=== PATIENT | male | born 1935 | race Asian ===

== ENCOUNTER 2018-04-08 18:25 | Emergency (ER) | payer MEDICARE, BC ==
[2018-04-08 19:22] LABS: ADD MAN DIFF? NO
[2018-04-08 19:27] LABS: ABNORMAL IP MESSAGE 1; BASOPHILS % 0.3 % (0.0-2.0); EOSINOPHILS # 0.1 10^3/ul (0.0-0.5); EOSINOPHILS % 2.2 % (0.0-7.0); HEMATOCRIT 39.2 % (42.0-52.0); HEMOGLOBIN 13.6 g/dl (14.0-18.0); LYMPHOCYTES # 0.5 10^3/ul (0.8-2.9); LYMPHOCYTES % 7.7 % (15.0-51.0); MEAN CORPUSCULAR HEMOGLOBIN 32.5 pg (29.0-33.0); MEAN CORPUSCULAR HGB CONC 34.7 g/dl (32.0-37.0); MEAN CORPUSCULAR VOLUME 93.8 fl (82.0-101.0); MEAN PLATELET VOLUME 8.8 fl (7.4-10.4); MONOCYTE # 0.5 10^3/ul (0.3-0.9); MONOCYTES % 7.2 % (0.0-11.0); NEUTROPHIL # 5.3 10^3/ul (1.6-7.5); PLATELET COUNT 176 10^3/UL (140-415); POSITIVE DIFF @See below; RED BLOOD COUNT 4.18 10^6/ul (4.70-6.10); RED CELL DISTRIBUTION WIDTH 12.5 % (11.5-14.5)
[2018-04-08 19:27] LABS: WHITE BLOOD COUNT 6.5 10^3/ul (4.8-10.8)
[2018-04-08 19:42] LABS: ANION GAP 10 (8-16); BLOOD UREA NITROGEN 16 mg/dl (7-20); CALCIUM 8.7 mg/dl (8.4-10.2); CARBON DIOXIDE 27 mmol/L (21-31); CHLORIDE 95 mmol/L (97-110); CREATININE 0.68 mg/dl (0.61-1.24); GLUCOSE 103 mg/dl (70-220); POTASSIUM 4.3 mmol/L (3.5-5.1); SODIUM 128 mmol/L (135-144)
[2018-04-08] MEDS: SOD CHLORIDE 0.9% 500 ML IV ×2 (19:42→20:26)
[2018-04-08 19:54] LABS: TROPONIN-I < 0.012 ng/ml (0.000-0.120)
== END 2018-04-08 22:42 | disposition home or self-care (01) ==
LOC: E/R 18:25
DX: R42 Dizziness and giddiness (principal); I10 Essential (primary) hypertension; Z79.01 Long term (current) use of anticoagulants; Z95.0 Presence of cardiac pacemaker
CPT/HCPCS: 36415; 70450; 71045; 80048; 84484; 85025; 93005; 96360; 96361; 99285-25

== ENCOUNTER 2018-10-02 12:47 | Inpatient (IN) | payer MEDICARE, BC, OTHER ==
[2018-10-02 13:20] LABS: ADD MAN DIFF? NO
[2018-10-02 13:24] LABS: BASOPHILS % 0.6 % (0.0-2.0); EOSINOPHILS # 0.4 10^3/ul (0.0-0.5); EOSINOPHILS % 5.5 % (0.0-7.0); HEMATOCRIT 39.1 % (42.0-52.0); HEMOGLOBIN 13.3 g/dl (14.0-18.0); LYMPHOCYTES # 1.1 10^3/ul (0.8-2.9); LYMPHOCYTES % 16.6 % (15.0-51.0); MEAN CORPUSCULAR HEMOGLOBIN 31.8 pg (29.0-33.0); MEAN CORPUSCULAR VOLUME 93.5 fl (82.0-101.0); MEAN PLATELET VOLUME 8.9 fl (7.4-10.4); MONOCYTE # 0.8 10^3/ul (0.3-0.9); MONOCYTES % 12.9 % (0.0-11.0); NEUTROPHIL # 4.2 10^3/ul (1.6-7.5); NEUTROPHILS % 64.1 % (39.0-77.0); PLATELET COUNT 189 10^3/UL (140-415); RED BLOOD COUNT 4.18 10^6/ul (4.70-6.10)
[2018-10-02 13:24] LABS: WHITE BLOOD COUNT 6.5 10^3/ul (4.8-10.8)
[2018-10-02 13:44] LABS: ANION GAP 9 (5-13); BLOOD UREA NITROGEN 17 mg/dl (7-20); CALCIUM 9.1 mg/dl (8.4-10.2); CARBON DIOXIDE 25 mmol/L (21-31); CHLORIDE 97 mmol/L (97-110); CREATININE 0.72 mg/dl (0.61-1.24); GLUCOSE 81 mg/dl (70-220); POTASSIUM 4.1 mmol/L (3.5-5.1); SODIUM 131 mmol/L (135-144)
[2018-10-02 13:55] LABS: TROPONIN-I < 0.012 ng/ml (0.000-0.120)
[2018-10-02] MEDS ORDERED: ACETAMINOPHEN 325 MG TAB PO ×2 (15:30→17:30)
[2018-10-02] MEDS ORDERED: ONDANSETRON 4 MG INJ IV (15:30)
[2018-10-02] MEDS: SOD CHLORIDE 0.9% 1,000 ML IV (15:45)
[2018-10-02] MEDS ORDERED: LORAZEPAM 2 MG INJ IV (17:30)
[2018-10-02] MEDS ORDERED: HYDROCODONE/APAP (5/325) TAB PO (17:30)
[2018-10-02] MEDS ORDERED: hydrALAzine 20 MG INJ IV (17:30)
[2018-10-02] MEDS ORDERED: NACL 0.9% 3 ML SYG IV (17:30)
[2018-10-02] MEDS ORDERED: ALBUTEROL/IPRATROPIUM (NEB) 3 ML AMP HHN (17:30)
[2018-10-02] MEDS ORDERED: MAGNESIUM HYDROXIDE 30ML CUP PO (17:30)
[2018-10-02] MEDS ORDERED: NITROGLYCERIN (SL) 0.4 MG TAB SL (17:30)
[2018-10-02] MEDS ORDERED: morphine 2 MG INJ IV (17:30)
[2018-10-02] MEDS ORDERED: DOCUSATE SODIUM 100 MG CAP PO (17:30)
[2018-10-02] MEDS: SOD CHLORIDE 0.45% 1,000 ML IV (18:45)
[2018-10-02 19:16] LABS: INR 0.95; PROTIME 12.8 Sec (11.9-14.9)
[2018-10-02 19:17] LABS: PARTIAL THROMBOPLASTIN TIME 32.6 Sec (23.0-35.0)
[2018-10-02] MEDS: ATORVASTATIN 40 MG TAB PO (20:13)
[2018-10-02] MEDS: TAMSULOSIN (SR) 0.4 MG CAP PO (20:13)
[2018-10-03 06:21] LABS: ADD MAN DIFF? NO
[2018-10-03 06:32] LABS: WHITE BLOOD COUNT 4.4 10^3/ul (4.8-10.8)
[2018-10-03 06:32] LABS: BASOPHILS % 0.7 % (0.0-2.0); EOSINOPHILS # 0.4 10^3/ul (0.0-0.5); EOSINOPHILS % 8.9 % (0.0-7.0); HEMATOCRIT 37.2 % (42.0-52.0); HEMOGLOBIN 12.9 g/dl (14.0-18.0); LYMPHOCYTES # 0.9 10^3/ul (0.8-2.9); LYMPHOCYTES % 20.1 % (15.0-51.0); MEAN CORPUSCULAR HEMOGLOBIN 31.9 pg (29.0-33.0); MEAN CORPUSCULAR HGB CONC 34.7 g/dl (32.0-37.0); MEAN CORPUSCULAR VOLUME 91.9 fl (82.0-101.0); MEAN PLATELET VOLUME 9.2 fl (7.4-10.4); MONOCYTE # 0.7 10^3/ul (0.3-0.9); MONOCYTES % 15.1 % (0.0-11.0); NEUTROPHIL # 2.4 10^3/ul (1.6-7.5); NEUTROPHILS % 54.7 % (39.0-77.0); PLATELET COUNT 190 10^3/UL (140-415); RED BLOOD COUNT 4.05 10^6/ul (4.70-6.10); RED CELL DISTRIBUTION WIDTH 12.7 % (11.5-14.5)
[2018-10-03 07:13] LABS: ANION GAP 7 (5-13); BLOOD UREA NITROGEN 15 mg/dl (7-20); CALCIUM 8.6 mg/dl (8.4-10.2); CARBON DIOXIDE 23 mmol/L (21-31); CHLORIDE 100 mmol/L (97-110); CHOL/HDL RATIO 2.3 RATIO; CHOLESTEROL 103 mg/dl (100-200); CREATININE 0.71 mg/dl (0.61-1.24); GLUCOSE 83 mg/dl (70-220); HDL CHOLESTEROL 44 mg/dl (31-75); LDL CHOLESTEROL,CALCULATED 51 mg/dl; MAGNESIUM 2.2 mg/dl (1.7-2.5); PHOSPHORUS 3.2 mg/dl (2.5-4.9); POTASSIUM 4.3 mmol/L (3.5-5.1); SODIUM 130 mmol/L (135-144); TRIGLYCERIDES 40 mg/dl (0-149)
[2018-10-03] MEDS: SOD CHLORIDE 0.45% 1,000 ML IV (07:30)
[2018-10-03 07:50] LABS: HEMOGLOBIN A1C 5.7 % (0-5.9)
[2018-10-03] MEDS: CLOPIDOGREL 75 MG TAB PO (09:27)
[2018-10-03] MEDS: DUTASTERIDE 0.5 MG CAP PO (09:27)
[2018-10-03] MEDS: AMIODARONE 150MG/D5W BOLUS 100 ML IV (16:33)
[2018-10-03] MEDS: AMIODARONE 900 MG in DEXTROSE 5% 482 ML IV (16:56)
[2018-10-03] MEDS: ATORVASTATIN 40 MG TAB PO (20:08)
[2018-10-03] MEDS: METOPROLOL (XL) 25 MG TAB PO (20:08)
[2018-10-03] MEDS: TAMSULOSIN (SR) 0.4 MG CAP PO (20:08)
[2018-10-04] MEDS: MELATONIN 5 MG TABLET PO (01:59)
[2018-10-04 06:44] LABS: ADD MAN DIFF? NO
[2018-10-04 06:49] LABS: BASOPHILS % 0.6 % (0.0-2.0); EOSINOPHILS # 0.3 10^3/ul (0.0-0.5); EOSINOPHILS % 6.7 % (0.0-7.0); HEMATOCRIT 38.6 % (42.0-52.0); HEMOGLOBIN 13.4 g/dl (14.0-18.0); LYMPHOCYTES # 0.9 10^3/ul (0.8-2.9); LYMPHOCYTES % 19.1 % (15.0-51.0); MEAN CORPUSCULAR HEMOGLOBIN 31.6 pg (29.0-33.0); MEAN CORPUSCULAR HGB CONC 34.7 g/dl (32.0-37.0); MEAN PLATELET VOLUME 9.1 fl (7.4-10.4); MONOCYTE # 0.6 10^3/ul (0.3-0.9); MONOCYTES % 12.5 % (0.0-11.0); NEUTROPHIL # 2.9 10^3/ul (1.6-7.5); NEUTROPHILS % 60.9 % (39.0-77.0); PLATELET COUNT 202 10^3/UL (140-415); RED BLOOD COUNT 4.24 10^6/ul (4.70-6.10); RED CELL DISTRIBUTION WIDTH 12.5 % (11.5-14.5)
[2018-10-04 06:49] LABS: WHITE BLOOD COUNT 4.8 10^3/ul (4.8-10.8)
[2018-10-04 07:10] LABS: ALANINE AMINOTRANSFERASE 19 IU/L (13-69); ALBUMIN 3.4 g/dl (3.3-4.9); ALBUMIN/GLOBULIN RATIO 1.21; ALKALINE PHOSPHATASE 63 IU/L (42-121); ANION GAP 8 (5-13); ASPARTATE AMINO TRANSFERASE 23 IU/L (15-46); BILIRUBIN,INDIRECT 1.5 mg/dl (0-1.1); BILIRUBIN,TOTAL 1.5 mg/dl (0.2-1.3); BLOOD UREA NITROGEN 17 mg/dl (7-20); CALCIUM 8.8 mg/dl (8.4-10.2); CARBON DIOXIDE 25 mmol/L (21-31); CHLORIDE 96 mmol/L (97-110); CREATININE 0.73 mg/dl (0.61-1.24); GLUCOSE 109 mg/dl (70-220); MAGNESIUM 2.1 mg/dl (1.7-2.5); SODIUM 129 mmol/L (135-144); TOTAL PROTEIN 6.2 g/dl (6.1-8.1)
[2018-10-04] MEDS: CLOPIDOGREL 75 MG TAB PO (08:33)
[2018-10-04] MEDS: DUTASTERIDE 0.5 MG CAP PO (08:34)
[2018-10-04] MEDS: METOPROLOL (XL) 25 MG TAB PO ×2 (08:34→20:26)
[2018-10-04] MEDS: ONDANSETRON 4 MG INJ IV (10:54)
[2018-10-04] MEDS: AMIODARONE 900 MG in DEXTROSE 5% 482 ML IV (15:51)
[2018-10-04] MEDS: ATORVASTATIN 40 MG TAB PO (20:25)
[2018-10-04] MEDS: TAMSULOSIN (SR) 0.4 MG CAP PO (20:25)
[2018-10-05 06:52] LABS: ADD MAN DIFF? NO
[2018-10-05 06:57] LABS: BASOPHILS % 0.6 % (0.0-2.0); EOSINOPHILS # 0.3 10^3/ul (0.0-0.5); EOSINOPHILS % 6.8 % (0.0-7.0); HEMATOCRIT 37.9 % (42.0-52.0); HEMOGLOBIN 13.3 g/dl (14.0-18.0); LYMPHOCYTES # 0.6 10^3/ul (0.8-2.9); LYMPHOCYTES % 12.4 % (15.0-51.0); MEAN CORPUSCULAR HEMOGLOBIN 31.6 pg (29.0-33.0); MEAN CORPUSCULAR HGB CONC 35.1 g/dl (32.0-37.0); MEAN PLATELET VOLUME 9.2 fl (7.4-10.4); MONOCYTE # 0.7 10^3/ul (0.3-0.9); MONOCYTES % 14.8 % (0.0-11.0); NEUTROPHIL # 3.2 10^3/ul (1.6-7.5); PLATELET COUNT 212 10^3/UL (140-415); RED BLOOD COUNT 4.21 10^6/ul (4.70-6.10); RED CELL DISTRIBUTION WIDTH 12.5 % (11.5-14.5)
[2018-10-05 07:18] LABS: ANION GAP 7 (5-13); BLOOD UREA NITROGEN 15 mg/dl (7-20); CALCIUM 8.8 mg/dl (8.4-10.2); CARBON DIOXIDE 25 mmol/L (21-31); CHLORIDE 93 mmol/L (97-110); CREATININE 0.72 mg/dl (0.61-1.24); GLUCOSE 102 mg/dl (70-220); POTASSIUM 4.1 mmol/L (3.5-5.1); SODIUM 125 mmol/L (135-144)
[2018-10-05] MEDS: CLOPIDOGREL 75 MG TAB PO (08:31)
[2018-10-05] MEDS: METOPROLOL (XL) 25 MG TAB PO ×2 (08:32→21:20)
[2018-10-05] MEDS: DUTASTERIDE 0.5 MG CAP PO (13:06)
[2018-10-05] MEDS: SOD CHLORIDE 0.9% 1,000 ML IV (16:38)
[2018-10-05 18:15] LABS: ANION GAP 9 (5-13); BLOOD UREA NITROGEN 15 mg/dl (7-20); CALCIUM 8.5 mg/dl (8.4-10.2); CARBON DIOXIDE 24 mmol/L (21-31); CHLORIDE 92 mmol/L (97-110); CREATININE 0.69 mg/dl (0.61-1.24); GLUCOSE 92 mg/dl (70-220); POTASSIUM 4.1 mmol/L (3.5-5.1); SODIUM 125 mmol/L (135-144)
[2018-10-05] MEDS: TAMSULOSIN (SR) 0.4 MG CAP PO (21:19)
[2018-10-05] MEDS: ATORVASTATIN 40 MG TAB PO (21:20)
[2018-10-06 06:53] LABS: ADD MAN DIFF? NO
[2018-10-06 06:56] LABS: WHITE BLOOD COUNT 4.9 10^3/ul (4.8-10.8)
[2018-10-06 06:56] LABS: BASOPHILS % 0.8 % (0.0-2.0); EOSINOPHILS # 0.4 10^3/ul (0.0-0.5); EOSINOPHILS % 7.7 % (0.0-7.0); HEMATOCRIT 37.7 % (42.0-52.0); HEMOGLOBIN 13.1 g/dl (14.0-18.0); LYMPHOCYTES # 0.8 10^3/ul (0.8-2.9); LYMPHOCYTES % 15.2 % (15.0-51.0); MEAN CORPUSCULAR HEMOGLOBIN 31.5 pg (29.0-33.0); MEAN CORPUSCULAR HGB CONC 34.7 g/dl (32.0-37.0); MEAN CORPUSCULAR VOLUME 90.6 fl (82.0-101.0); MEAN PLATELET VOLUME 8.9 fl (7.4-10.4); MONOCYTE # 0.8 10^3/ul (0.3-0.9); MONOCYTES % 15.7 % (0.0-11.0); NEUTROPHIL # 2.9 10^3/ul (1.6-7.5); NEUTROPHILS % 59.8 % (39.0-77.0); PLATELET COUNT 214 10^3/UL (140-415); RED BLOOD COUNT 4.16 10^6/ul (4.70-6.10); RED CELL DISTRIBUTION WIDTH 12.3 % (11.5-14.5)
[2018-10-06 07:24] LABS: ANION GAP 6 (5-13); BLOOD UREA NITROGEN 14 mg/dl (7-20); CALCIUM 8.6 mg/dl (8.4-10.2); CARBON DIOXIDE 24 mmol/L (21-31); CHLORIDE 98 mmol/L (97-110); CREATININE 0.72 mg/dl (0.61-1.24); GLUCOSE 92 mg/dl (70-220); POTASSIUM 4.2 mmol/L (3.5-5.1); SODIUM 128 mmol/L (135-144)
[2018-10-06] MEDS: DUTASTERIDE 0.5 MG CAP PO (08:36)
[2018-10-06] MEDS: METOPROLOL (XL) 25 MG TAB PO (08:37)
[2018-10-06] MEDS: CLOPIDOGREL 75 MG TAB PO (08:37)
[2018-10-06 10:34] LABS: URIC ACID 1.7 mg/dl (3.1-7.9)
[2018-10-06 12:36] LABS: ADD UMIC YES; UR ASCORBIC ACID NEGATIVE (NEGATIVE); UR BILIRUBIN (Dip) NEGATIVE (NEGATIVE); UR BLOOD (Dip) 2+ mg/dL (NEGATIVE); UR CLARITY CLEAR (CLEAR); UR COLOR YELLOW (YELLOW); UR GLUCOSE (Dip) 1+ mg/dL (NEGATIVE); UR KETONES (Dip) NEGATIVE (NEGATIVE); UR LEUKOCYTE ESTERASE (Dip) NEGATIVE Leu/ul (NEGATIVE); UR MUCUS FEW /HPF (NONE SEEN); UR NITRITE (Dip) NEGATIVE (NEGATIVE); UR RBC 13 /HPF (0-5); UR SPECIFIC GRAVITY (Dip) 1.015 (1.003-1.030); UR TOTAL PROTEIN (Dip) NEGATIVE (NEGATIVE); UR UROBILINOGEN (Dip) NEGATIVE (NEGATIVE); UR WBC 1 /HPF (0-5)
[2018-10-06 13:12] LABS: SODIUM,URINE RANDOM 29 mmol/L (30-90)
[2018-10-06 13:17] LABS: ANION GAP 8 (5-13); BLOOD UREA NITROGEN 17 mg/dl (7-20); CALCIUM 8.4 mg/dl (8.4-10.2); CARBON DIOXIDE 22 mmol/L (21-31); CHLORIDE 97 mmol/L (97-110); CREATININE 0.82 mg/dl (0.61-1.24); GLUCOSE 126 mg/dl (70-220); POTASSIUM 3.8 mmol/L (3.5-5.1); SODIUM 127 mmol/L (135-144)
[2018-10-06 13:19] LABS: OSMOLALITY,URINE 509 mOsm/kg (250-1200)
[2018-10-06 16:50] LABS: SODIUM 127 mmol/L (135-144)
[2018-10-07 14:23] LABS: CREATININE, RANDOM URINE 110 mg/dL (20-320); MICROALBUMIN 0.7 mg/dL; MICROALBUMIN/CREATININE RATIO 6 (<30)
== END 2018-10-06 19:05 | disposition home or self-care (01) | DRG 309 ==
LOC: E/R 12:47 → TEL 15:22
PROC: 4B02XSZ Measurement of Cardiac Pacemaker, External Approach (ICD-10-PCS; principal; 2018-10-02)
DX: I49.3 Ventricular premature depolarization (principal); E87.1 Hypo-osmolality and hyponatremia; R00.8 Other abnormalities of heart beat; I49.49 Other premature depolarization; I10 Essential (primary) hypertension; E78.00 Pure hypercholesterolemia, unspecified; E78.5 Hyperlipidemia, unspecified; N40.0 Benign prostatic hyperplasia without lower urinary tract symptoms; Z95.0 Presence of cardiac pacemaker; Z79.02 Long term (current) use of antithrombotics/antiplatelets
CPT/HCPCS: 36415; 71045; 80048; 80053; 80061; 81001; 81003; 82043; 83036; 83735; 83935; 84100; 84155; 84295; 84300; 84439; 84443; 84484; 84560; 85025; 85610; 85730; 87081; 92610; 93005; 93306; 97116; 97161; 97166; 97530; 99285-25; G0378